=== PATIENT | male | born 1950 | race Caucasian/White ===

== ENCOUNTER 2018-03-11 19:28 | Emergency (ER) | payer OTHER ==
[~2018-03-11] VITALS: Ht 180.3 cm; Wt 83.9 kg
--- NOTE | ~2018-03-11 | EKG ---
[address] [employer] [place] [address] ELECTROCARDIOGRAM REPORT Name: QUETA CARLIN Room [facility]: 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
[2018-03-11 20:08] LABS: ABSOLUTE NEUTROPHILS 15.3 thou/uL (1.4-8.2); BASOPHILS 0.2 % (0.0-2.0); EOSINOPHILS 1.7 % (0.0-3.0); HEMATOCRIT 43.6 % (42.0-52.0); HEMOGLOBIN 15.2 gm/dL (14.0-18.0); LYMPHOCYTES 6.8 % (24.0-44.0); MCH 32.4 pg (26.0-34.0); MCHC 34.9 g/dL (28.0-37.0); MCV 92.9 fL (80.0-100.0); MONOCYTES 5.2 % (1.0-8.0); PLATELET COUNT 209 thou/uL (150-400); POLYS 86.1 % (36.0-66.0); RBC 4.69 mil/uL (4.50-6.00); RDW 12.9 % (10.5-14.5); WBC 17.8 thou/uL (4.0-11.0)
[2018-03-11 20:16] LABS: ANION GAP 10 mmol/L (7-16); BUN 20 mg/dL (7-18); CALCIUM 9.4 mg/dL (8.5-10.1); CHLORIDE 102 mmol/L (98-107); CO2 26 mmol/L (21-32); GLUCOSE 148 mg/dL (74-106); SODIUM 138 mmol/L (136-145)
[2018-03-11 20:17] LABS: POTASSIUM 4.3 mmol/L (3.5-5.1)
[2018-03-11 20:25] LABS: ALBUMIN 3.5 g/dL (3.4-5.0); LIPASE 143 U/L (73-393); SGOT 64 U/L (15-37); SGPT 48 U/L (30-65); TOTAL BILIRUBIN 0.7 mg/dL (<0.1-1.0); TOTAL PROTEIN 7.1 g/dL (6.4-8.2); TROPONIN-I <0.06 ng/mL (<0.06)
[2018-03-11 20:39] LABS: URINE BILIRUBIN NEGATIVE (Negative); URINE BLOOD NEGATIVE (Negative); URINE CLARITY CLEAR; URINE COLOR YELLOW; URINE GLUCOSE-RANDOM* NEGATIVE (Negative); URINE KETONES 1+ (Negative); URINE LEUKOCYTES-REFLEX NEGATIVE (Negative); URINE NITRITE-REFLEX NEGATIVE (Negative); URINE PROTEIN (DIPSTICK) NEGATIVE (Negative); URINE SPECIFIC GRAVITY 1.025 (1.005-1.035); URINE UROBILINOGEN 0.2 E.U./dl (0.2-1.0)
[2018-03-12] MEDS ORDERED: ZOFRAN ODT4 MG PO (00:12)
[2018-03-12] MEDS ORDERED: MIRALAX17 GM PO (00:12)
== END 2018-03-12 00:34 | disposition home or self-care (01) ==
LOC: ER 19:28
PROVIDERS: Emergency Medicine
DX: R07.89 Other chest pain (principal); R42 Dizziness and giddiness